=== PATIENT | male | born 1960 | race Caucasian/White ===

== ENCOUNTER → 2018-11-30 | Outpatient (CLI) | payer MEDICARE ==
--- NOTE | 2018-11-30 11:51 | PCVCIMAG ---
EXAM: BILATERAL RENAL ULTRASOUND AND BILATERAL RENAL DUPLEX INDICATION: Hypertension FINDINGS: Right kidney: Length measures 11.3 cm. No extensive renal scarring. 0.7 x 1.2 x 1.4 cm benign cyst lower pole. 1.1 cm renal calculus midpole. Prominence of the renal pelvis likely related to patient's known recent passage of a ureteral calculus. Right renal duplex: Adequate technical quality. No sonographic evidence of renal artery stenosis. The aortic to renal artery ratio is 1.3. The renal vein is patent. Left kidney: Length measures 12.2 cm. No hydronephrosis or extensive renal scarring. 1.3 cm nonobstructing calculus mid pole. Left renal duplex: Adequate technical quality. No sonographic evidence of renal artery stenosis. The aortic to renal artery ratio is 2.1. The renal vein is patent. Bladder: No obvious abnormalities. IMPRESSION: No significant renal artery stenosis. Bilateral nonobstructing renal calculi as described. Prominence of the right renal pelvis likely related to recent ureteral calculus which was passed. LOC:[id number]
--- NOTE | 2018-11-30 11:59 | PCVCIMAG ---
APPROVED REPORT Study performed: 11/30/2018 08:09:11 EXAM: Comprehensive 2D, Doppler, and color-flow Echocardiogram Patient Location: Echo lab Room #: 2Status: routine BSA: 2.32 HR: 54 bpmBP: 156/100 mmHg Rhythm: NSR Other Information Study Quality: Good Risk Factors: Cardiac Risk Factors: HTN Indications Hypertension/HDD 2D Dimensions IVSd: 12.98 (7-11mm)LVOT Diam: 23.87 (18-24mm) LVDd: 54.36 mm PWd: 12.20 (7-11mm)Ascending Ao: 35.26 (22-36mm) LVDs: 35.91 (25-40mm) Left Atrium: 42.83 (27-40mm) Aortic Root: 27.43 mm LV Single Plane 4CH: 63.45 % LV Single Plane 2CH: 64.51 % Biplane EF: 63.3 % Volumes Left Atrial Volume (Systole) Single Plane 4CH: 74.83 mLSingle Plane 2CH: 62.57 mL Biplane LA Volume: 73.00 mLLA ESV Index: 31.00 mL/m2 Aortic Valve AoV Peak Manuel.: 1.59 m/s AO Peak Gr.: 10.13 mmHgLVOT Max P.46 mmHg LVOT Max V: 1.06 m/s MICHI Vmax: 2.97 cm2 Mitral Valve E/A Ratio: 1.1 MV Decel. Time: 252.59 ms MV E Max Manuel.: 0.88 m/s MV A Manuel.: 0.77 m/s IVRT: 86.51 ms TDI E/Lateral E': 11.00E/Medial E': 14.67 Medial E' Manuel.: 0.06 m/s Lateral E' Manuel.: 0.08 m/s Pulmonary Valve PV Peak Manuel.: 1.16 m/sPV Peak Gr.: 5.42 mmHg Pulmonary Vein P Vein S: 0.46 m/sP Vein A: 0.31 m/s P Vein D: 0.37 m/sP Vein A Dur.: 90.0 msec P Vein S/D Ratio: 1.24 Tricuspid Valve TR Peak Manuel.: 2.35 m/s TR Peak Gr.: 22.13 mmHg TV Vmax: 0.71 m/sPA Pressure: 29.00 mmHg Left Ventricle The left ventricle is normal size. There is normal LV segmental wall motion. Mild concentric left ventricular hypertrophy. Left ventricular systolic function is normal. The left ventricular ejection fraction is within the normal range. LVEF is 60-65%. The left ventricular diastolic function is normal. Right Ventricle The right ventricle is normal size. The right ventricular systolic function is normal. Atria The left atrium size is normal. The right atrium size is normal. Aortic Valve Aortic valve is trileaflet. The aortic valve is normal in structure and function. No aortic regurgitation is present. There is no aortic valvular stenosis. Mitral Valve The mitral valve is normal in structure. There is no mitral valve regurgitation noted. No evidence of mitral valve stenosis. Tricuspid Valve The tricuspid valve is normal in structure. Trace to mild tricuspid regurgitation with a PA pressure of 29 mHg. Pulmonic Valve The pulmonary valve is normal in structure. There is no pulmonic valvular regurgitation. Great Vessels The aortic root is normal in size. The ascending aorta is normal in size. Aortic arch is normal in caliber. IVC is normal in size and collapses >50% with inspiration. Pericardium There is no pericardial effusion. There is no pleural effusion. <Conclusion> The left ventricle is normal size. LVEF is 60-65%. Aortic valve is trileaflet. The aortic valve is normal in structure and function. The mitral valve is normal in structure. The tricuspid valve is normal in structure. Trace to mild tricuspid regurgitation with a PA pressure of 29 mHg. The pulmonary valve is normal in structure. There is no pericardial effusion.
== END | disposition home or self-care (01) ==
LOC: PCVCIMAG 08:00
PROVIDERS: ATTEND Internal Medicine
DX: I07.1 Rheumatic tricuspid insufficiency (principal); I10 Essential (primary) hypertension
CPT/HCPCS: 76770; 93306; 93975